=== PATIENT | male | born 1935 | race Caucasian/White ===

== ENCOUNTER → 2018-12-22 | Outpatient (REF) | payer MEDICARE, BC ==
[~2018-12-22] MED LIST: BENTYL10 MG PO; FAMOTIDINE20 M1 PO; FISH OIL1200 MG PO; LIPITOR10 M1 PO; LORAZEPAM0.5 MG PO; MULTIVITAMI1 PO; TAMSULOSIN0.4 MG PO; VITAMIN D-32000 UNI1 PO
== END | disposition home or self-care (01) ==
LOC: LAB 06:41
DX: R73.03 Prediabetes (principal)